=== PATIENT | male | born 1945 | race Caucasian/White ===

== ENCOUNTER 2020-09-27 10:58 | Outpatient (CLI) | payer MEDICARE | END 2020-09-27 10:59 | disposition home or self-care (01) | LOC: CSHULT 10:58 | PROVIDERS: ATTEND Internal Medicine | DX: R06.00 Dyspnea, unspecified (principal); J98.11 Atelectasis; J90 Pleural effusion, not elsewhere classified; Z96.611 Presence of right artificial shoulder joint; Z96.612 Presence of left artificial shoulder joint; I34.0 Nonrheumatic mitral (valve) insufficiency; J98.4 Other disorders of lung; I07.1 Rheumatic tricuspid insufficiency; I27.89 Other specified pulmonary heart diseases | CPT/HCPCS: 71046; 93306 ==